=== PATIENT | female | born 1995 | race Caucasian/White ===

== ENCOUNTER 2017-05-25 16:10 | Emergency (ER) | payer BC ==
[2017-05-25 16:33] VITALS: BP 121/73
--- NOTE | 2017-05-25 16:46 | UC ---
Throat Pain/Nasal Dav HPI - HPI Summary HPI Summary: Pt c/o generalized malaise, sore throat, nausea and vomiting X 3 days. vomited ~ 1-2 per day. - History of Current Complaint Chief Complaint: UCGeneralIllness Stated Complaint: HEAD,BODY ACHES,VOMITING,ST Time Seen by Provider: 05/25/17 16:20 Hx Obtained From: Patient Hx Last Menstrual Period: 05/19/17 ?: No Onset/Duration: Sudden Onset, Lasting Days Severity: Mild - Epiglottits Risk Factors Epiglottis Risk Factors: Negative - Allergies/Home Medications Allergies/Adverse Reactions: Allergies Allergy/AdvReac Type Severity Reaction Status Date / Time Penicillins Allergy Hives Verified 05/25/17 16:33 Home Medications: Home Medications Bcp 1 tab PO DAILY 05/25/17 [History] Dextromethorphan-Phenylephrine [Daytime Cold & Flu Relief 10-5-325 mg] 2 cap PO DAILY PRN 05/25/17 [History Confirmed 05/25/17] PMH/Surg Hx/FS Hx/Imm Hx Previously Healthy: Yes - Surgical History Surgical History: None - Family History Known Family History: Positive: Cardiac Disease - Social History Occupation: Employed Full-time Lives: With Family Alcohol Use: None Substance Use Type: None Smoking Status (MU): Never Smoked Tobacco Have You Smoked in the Last Year: No Review of Systems Constitutional: Negative Skin: Negative Eyes: Negative ENT: Sore Throat Respiratory: Negative Cardiovascular: Negative Gastrointestinal: Abdominal Pain, Vomiting, Nausea Genitourinary: Negative Motor: Negative Neurovascular: Negative Musculoskeletal: Negative Neurological: Negative Psychological: Negative Is Patient Immunocompromised?: No All Other Systems Reviewed And Are Negative: Yes Physical Exam Triage Information Reviewed: Yes Appearance: Well-Appearing Vital Signs: Initial Vital Signs Temp 98.1 F 05/25/17 16:25 Pulse 91 05/25/17 16:25 Resp 14 05/25/17 16:25 BP 121/73 05/25/17 16:25 Pulse Ox 98 05/25/17 16:25 Vital Signs Reviewed: Yes Eye Exam: Normal ENT Exam: Normal Dental Exam: Normal Neck exam: Normal Respiratory Exam: Normal Cardiovascular Exam: Normal Abdominal Exam: Normal Bowel Sounds: Positive: Present Musculoskeletal Exam: Normal Neurological Exam: Normal Psychological Exam: Normal Skin Exam: Normal Throat Pain/Nasal Course/Dx - Differential Dx/Diagnosis Differential Diagnosis/HQI/PQRI: Pharyngitis, Tonsillitis Provider Diagnoses: sore throat. nausea and vomiting Discharge - Discharge Plan Condition: Stable Disposition: HOME Patient Education Materials: Pharyngitis (ED), Acute Nausea and Vomiting (ED) Forms: *Work Release Referrals: Gus Velasquez HOUSEKEEPING AIDE [Primary Care Provider] - If Needed
== END 2017-05-25 17:10 | disposition home or self-care (01) ==
LOC: UCCORT 16:10
DX: J02.9 Acute pharyngitis, unspecified (principal); J11.2 Influenza due to unidentified influenza virus with gastrointestinal manifestations
CPT/HCPCS: 87651; 99211; G0463

== ENCOUNTER 2017-08-23 19:55 | Emergency (ER) | payer BC ==
[2017-08-23 21:35] VITALS: BP 122/64
--- NOTE | 2017-08-23 22:49 | UC ---
Minor Trauma HPI - HPI Summary HPI Summary: DOG ACCIDENTALLY SWEPT FEET OUT FROM UNDER PT TONIGHT. PT LANDED ON ROCKS WITH LEFT ELBOW AND WRIST. - History of Current Complaint Chief Complaint: UCUpperExtremity Stated Complaint: LEFT ELBOW INJURY Time Seen by Provider: 08/23/17 21:43 Hx Obtained From: Patient, Family/Sales Facilitator - fiance Hx Last Menstrual Period: 08/11/17 Onset/Duration: Sudden Onset, Lasting Hours, Still Present Onset Of Pain: Immediate Severity Initially: Moderate Severity Currently: Moderate Pain Intensity: 7 Pain Scale Used: 0-10 Numeric Mechanism Of Injury: Blunt Trauma Aggravating Factor(s): Other: - PALPATION Alleviating Factor(s): Compression Associated Signs And Symptoms: Negative: Loss Of Consciousness, Ecchymosis, Swelling - Allergies/Home Medications Allergies/Adverse Reactions: Allergies Allergy/AdvReac Type Severity Reaction Status Date / Time Penicillins Allergy Rash Verified 08/23/17 21:38 PMH/Surg Hx/FS Hx/Imm Hx Previously Healthy: Yes - Surgical History Surgical History: None - Family History Known Family History: Positive: Cardiac Disease - Social History Alcohol Use: Rare Substance Use Type: None Smoking Status (MU): Never Smoked Tobacco Have You Smoked in the Last Year: No Review of Systems Constitutional: Negative Skin: Negative Respiratory: Negative Cardiovascular: Negative Gastrointestinal: Negative Musculoskeletal: Arthralgia, Decreased ROM All Other Systems Reviewed And Are Negative: Yes Physical Exam Triage Information Reviewed: Yes Appearance: Well-Appearing, No Pain Distress, Well-Nourished Vital Signs: Initial Vital Signs Temp 98.7 F 08/23/17 21:30 Pulse 63 08/23/17 21:30 Resp 16 08/23/17 21:30 BP 122/64 08/23/17 21:30 Pulse Ox 100 08/23/17 21:30 Vital Signs Reviewed: Yes Eyes: Positive: Conjunctiva Clear ENT: Positive: Hearing grossly normal Neck: Positive: Supple Respiratory: Positive: No respiratory distress, No accessory muscle use Cardiovascular: Positive: Pulses Normal Abdomen Description: Positive: Soft Musculoskeletal: Positive: No Edema, ROM Limited @ - LEFT WRIST AND ELBOW, Other : - DIFFUSELY TENDER (MILD) OVER LEFT ELBOW AND LEFT WRIST. EQUIVOCAL SNUFFBOX TENDERNESS. NO SWELLING OR BRUISING Neurological: Positive: Alert Psychological: Positive: Normal Response To Family, Age Appropriate Behavior Skin: Negative: rashes Diagnostics - Radiology LEFT WRIST AND ELBOW XRAYS Xray Interpretation: No Acute Changes Radiology Interpretation Completed By: ED Physician Minor Trauma Course/Dx - Differential Dx/Diagnosis Provider Diagnoses: 1. LEFT ELBOW CONTUSION. 2. LEFT WRIST SPRAIN Discharge - Discharge Plan Condition: Stable Disposition: HOME Patient Education Materials: Contusion in Adults (ED), Wrist Sprain (ED) Forms: *Work Release Referrals: Gus Velasquez NP [Primary Care Provider] - If Needed Elbert Pabon MD [Medical Doctor] - If Needed Additional Instructions: XRAY TODAY NEGATIVE FOR FRACTURE OR DISLOCATION ON MY INITIAL INTERPRETATION. WE WILL CALL YOU IF RADIOLOGY READ DIFFERS. SHERLEY WRAP, SPLINT AND SLING NEEDED. IBUPROFEN NEEDED FOR DISCOMFORT. IF YOU ARE NOT IMPROVING EXPECTED OVER THE NEXT WEEK FOLLOW-UP WITH ORTHO.
--- NOTE | 2017-08-24 07:42 | RAD ---
INDICATION: Left elbow injury. TECHNIQUE: 4 views of the left elbow were obtained. FINDINGS: The bones are in normal alignment. No joint effusion or fracture is seen. Joint spaces appear maintained. IMPRESSION: NO EVIDENCE FOR FRACTURE.
--- NOTE | 2017-08-24 07:43 | RAD ---
INDICATION: Left wrist injury. TECHNIQUE: 3 views of the left wrist were obtained. FINDINGS: The bones are in normal alignment. No fracture is seen. Joint spaces appear maintained. IMPRESSION: NO EVIDENCE FOR FRACTURE. IF THE PATIENT'S SYMPTOMS PERSIST RECOMMEND FOLLOW-UP IMAGING.
== END 2017-08-23 22:58 | disposition home or self-care (01) ==
LOC: UCCORT 19:55
DX: S50.02XA Contusion of left elbow, initial encounter (principal); S63.502A Unspecified sprain of left wrist, initial encounter; W01.0XXA Fall on same level from slipping, tripping and stumbling without subsequent striking against object, initial encounter; Y93.9 Activity, unspecified; Y92.9 Unspecified place or not applicable
CPT/HCPCS: 99213; G0463

== ENCOUNTER 2018-04-15 10:36 | Emergency (ER) | payer BC ==
--- NOTE | 2018-04-15 12:06 | UC ---
Throat Pain/Nasal Dav HPI - HPI Summary HPI Summary: 23 yo female presents with ear fullness, sinus pain/pressure/congestion, sore throat, and dry cough for the last 2 weeks. Her sore throat has resolved, but her sinus symptoms are still present. She is having a lot of post nasal drip, which she thinks is upsetting her stomach causing her to vomit two or three times in the last week. She has been taking dayquill and nyquill with mild relief of her symptoms. She denies fever, chills, SOB, chest pain, diarrhea, or dysuria. - History of Current Complaint Stated Complaint: HEADACHE,SORE THROAT,EARS,VOMITING Time Seen by Provider: 04/15/18 12:06 Hx Obtained From: Patient Hx Last Menstrual Period: 08/11/17 Onset/Duration: Gradual Onset Severity: Mild Pain Intensity: 4 Pain Scale Used: 0-10 Numeric - Allergies/Home Medications Allergies/Adverse Reactions: Allergies Allergy/AdvReac Type Severity Reaction Status Date / Time Penicillins Allergy Rash Verified 04/15/18 12:03 Home Medications: Home Medications D-Methorphan/PE/Acetaminophen [Vicks Dayquil Cold & Flu] 2 cap PO Q6H PRN [History Confirmed 04/15/18] Dm/PE/Acetaminophen/Doxylamine [Vicks Nyquil Severe Cold] 30 ml PO Q6H PRN 04/15 [History Confirmed 04/15/18] PMH/Surg Hx/FS Hx/Imm Hx - Additional Past Medical History Additional PMH: None - Surgical History Surgical History: None - Family History Known Family History: Positive: Cardiac Disease - Social History Occupation: Student Lives: Dormitory/Roommates Alcohol Use: Rare Substance Use Type: None Smoking Status (MU): Never Smoked Tobacco Have You Smoked in the Last Year: No Review of Systems Constitutional: Negative Skin: Negative Eyes: Negative ENT: Ear Ache, Nasal Discharge, Sinus Congestion, Sinus Pain/Tenderness Respiratory: Cough Cardiovascular: Negative Gastrointestinal: Vomiting, Nausea Genitourinary: Negative Neurological: Negative Psychological: Negative All Other Systems Reviewed And Are Negative: Yes Physical Exam - Summary Physical Exam Summary: GENERAL: NAD. WDWN. No pain distress. SKIN: No rashes, sores, lesions, or open wounds. HEENT: Head: AT/NC Eyes: EOM intact. Conjunctiva clear without inflammation or discharge. Ears: Hearing grossly normal. TMs intact, no bulging, erythema, or edema. Nose: Nasal mucosa mildly swollen and erythematous without discharge. TTP maxillary and frontal sinus. Throat: Posterior oropharynx without exudates, erythema, or tonsillar enlargement. Uvula midline. NECK: Supple. Nontender. No lymphadenopathy. CHEST: CTAB. No r/r/w. No accessory muscle use. Breathing comfortably and in no distress. CV: RRR. Without m/r/g. Pulses intact. NEURO: Alert. PSYCH: Age appropriate behavior. Triage Information Reviewed: Yes Vital Signs: Vital Signs: Temp Pulse Resp BP Pulse Ox 98.7 F 74 16 115/67 98 04/15/18 12:01 04/15/18 12:01 04/15/18 12:01 04/15/18 12:01 04/15/18 12:01 Laboratory Tests 04/15/18 12:09 Group A Strep Rapid Negative Vital Signs Reviewed: Yes Throat Pain/Nasal Course/Dx - Course Course Of Treatment: Sinusitis - Differential Dx/Diagnosis Provider Diagnoses: Sinusitis Discharge - Sign-Out/Discharge Documenting (check all that apply): Patient Departure All imaging exams completed and their final reports reviewed: No Studies - Discharge Plan Condition: Stable Disposition: HOME Prescriptions: Azithromycin TAB* [Zithromax TAB (Z-UZMA) 250 mg #6 tabs] 2 tab PO .TODAY, THEN 1 DAILY #1 uzma Patient Education Materials: Sinusitis (ED), Gastroenteritis (ED) Forms: *Work Release Referrals: Gus Velasquez NP [Primary Care Provider] - Additional Instructions: If you develop a fever, shortness of breath, chest pain, new or worsening symptoms - please call your PCP or go to the ED. - Billing Disposition and Condition Condition: STABLE Disposition: Home - Attestation Statements Provider Attestation: Chart reviewed. I was available for consult. I did not see this patient and was not involved in any disposition or treatment decisions.
[2018-04-15 12:08] VITALS: BP 115/67
== END 2018-04-15 12:42 | disposition home or self-care (01) ==
LOC: UCCORT 10:36
DX: J32.9 Chronic sinusitis, unspecified (principal); Z88.0 Allergy status to penicillin
CPT/HCPCS: 87651; 99212; G0463

== ENCOUNTER 2019-11-18 07:54 | Inpatient (IN) ==
[2019-11-18] MEDS ORDERED: Lactated Ringers 1000 ml BAG 1,000 ML IV ONE (09:40)
[2019-11-18 11:34] LABS: Urine Benzodiazepine Screen None Detected (None Detect); Urine Opiates Screen None Detected (None Detect)
[2019-11-18] MEDS ORDERED: Oxytocin in LR 20 UNITS/1,000 ML BAG IVPB SCH (15:00)
[2019-11-18] MEDS: Lactated Ringers 1000 ml BAG 1,000 ML IV SCH ×2 (15:15→19:26)
[2019-11-18 15:16] LABS: ABS Basophils 0.1 10^3/ul (0-0.2); ABS Lymphocytes 2.1 10^3/ul (1.0-4.8); ABS Monocytes 1.1 10^3/ul (0-0.8); Eosinophil % 0.4 %; Hematocrit 34 % (35-47); Hemoglobin 11.7 g/dL (12.0-16.0); Lymphocyte % 19.7 %; Mean Corpuscular HGB Conc 35 g/dL (31-36); Mean Corpuscular Hemoglobin 34 pg (27-31); Mean Corpuscular Volume 96 fL (80-97); Mean Platelet Volume 11.5 fL (7.4-10.4); Nucleated Red Blood Cells % 0.1; Platelet Count 127 10^3/uL (150-450); Red Blood Count 3.49 10^6 /uL (3.70-4.87); Red Cell Distribution Width 12 % (10-15); White Blood Count 10.6 10^3/uL (3.5-10.8)
[2019-11-19] MEDS ORDERED: Oxytocin in LR 20 UNITS/1,000 ML BAG IVPB SCH (07:00)
[2019-11-19] MEDS ORDERED: diPHENhydraMINE 25 mg TAB PO ONE (14:16)
[2019-11-19] MEDS ORDERED: Dinoprostone 10 MG VAG.SUPP VAGINAL ONE (19:15)
[2019-11-19] MEDS: Lactated Ringers 1000 ml BAG 1,000 ML IV SCH (21:35)
[2019-11-19] MEDS ORDERED: Morphine 10 MG/ML VIAL (1 ml) IV ONE (21:58)
[2019-11-19] MEDS ORDERED: Promethazine INJ(RESTRICTED) 25 MG/ML 1 ml VIAL IV ONE (22:01)
[2019-11-20] MEDS ORDERED: Morphine 10 MG/ML VIAL (1 ml) ONE ×2 (01:18→14:55)
[2019-11-20] MEDS ORDERED: Promethazine INJ(RESTRICTED) 25 MG/ML 1 ml VIAL ONE ×2 (01:18→14:55)
[2019-11-20] MEDS ORDERED: Morphine 10 MG/ML VIAL (1 ml) IV ONE (10:43)
[2019-11-20] MEDS ORDERED: Promethazine INJ(RESTRICTED) 25 MG/ML 1 ml VIAL IV ONE (10:44)
[2019-11-20 13:02] LABS: ABS Lymphocytes 1.4 10^3/ul (1.0-4.8); ABS Monocytes 1.3 10^3/ul (0-0.8); Eosinophil % 0.2 %; Hematocrit 33 % (35-47); Hemoglobin 11.5 g/dL (12.0-16.0); Lymphocyte % 8.8 %; Mean Corpuscular HGB Conc 35 g/dL (31-36); Mean Corpuscular Hemoglobin 33 pg (27-31); Mean Corpuscular Volume 96 fL (80-97); Mean Platelet Volume 11.7 fL (7.4-10.4); Platelet Count 107 10^3/uL (150-450); Red Blood Count 3.47 10^6 /uL (3.70-4.87); Red Cell Distribution Width 13 % (10-15); White Blood Count 16.1 10^3/uL (3.5-10.8)
[2019-11-20] MEDS: Lactated Ringers 1000 ml BAG 1,000 ML IV SCH (13:17)
[2019-11-20] MEDS: Oxytocin in LR 20 UNITS/1,000 ML BAG IVPB SCH (13:18)
[2019-11-20 13:19] LABS: Albumin 3.3 g/dL (3.2-5.2); Albumin/Globulin Ratio 1.1 (1-3); BUN/Creatinine Ratio 8.2 (8-20); Calcium 8.7 mg/dL (8.6-10.3); EGFR African American 191.1 (>60); EGFR Non-African American 157.9 (>60); Globulin 3.1 g/dL (2-4); Potassium 3.3 mmol/L (3.5-5.0); Total Bilirubin 0.6 mg/dL (0.2-1.0); Total Protein 6.4 g/dL (6.4-8.9); Uric Acid 3.7 mg/dL (2.3-6.6)
[2019-11-20] MEDS ORDERED: OBEPIDURAL 250 ML EPIDURAL ONE (16:35)
[2019-11-20] MEDS ORDERED: Phenylephrine 40 mcg/mL 10mL (400mcg) SYRINGE IV PUSH PRN ×2 (17:31)
[2019-11-20] MEDS ORDERED: Lactated Ringers 1000 ml BAG 500 ML IV PRN ×2 (17:31)
[2019-11-20] MEDS ORDERED: Lactated Ringers 1000 ml BAG 1,000 ML IV ONE (17:31)
[2019-11-20] MEDS ORDERED: Sodium Citrate/Citric Acid LIQ 15 ML UDC PO PRN (17:31)
[2019-11-20] MEDS ORDERED: OBEPIDURAL 250 ML EPIDURAL SCH (18:00)
[2019-11-20] MEDS ORDERED: Lactated Ringers 1000 ml BAG 1,000 ML IV SCH ×2 (18:00)
[2019-11-21] MEDS ORDERED: Witch Hazel PAD JAR TOPICAL PRN (04:38)
[2019-11-21] MEDS ORDERED: Glycerin ADULT 2.4 gm SUPP PR PRN (04:38)
[2019-11-21] MEDS ORDERED: Methylergonovine 0.2 mg AMPULE 1 ml AMP IM ONE (04:38)
[2019-11-21] MEDS ORDERED: Dibucaine 1% OINT 28.35 GM TUBE PR PRN (04:38)
[2019-11-21] MEDS ORDERED: Clindamycin 900 MG/D5W BAG 900 MG/50 ML BAG IVPB ONE (04:43)
[2019-11-21] MEDS ORDERED: Lactated Ringers 1000 ml BAG 1,000 ML IV SCH (05:00)
[2019-11-21] MEDS ORDERED: Oxytocin in LR 20 UNITS/1,000 ML BAG IVPB SCH (05:00)
[2019-11-21] MEDS ORDERED: Gentamicin ADULT 400 MG in NS 0.9% 100 ml BAG 100 ML IVPB ONE (05:15)
[2019-11-21] MEDS: Oxytocin in LR 20 UNITS/1,000 ML BAG IVPB SCH (05:19)
[2019-11-21] MEDS ORDERED: Varicella Virus Vaccine Live 0.5 ML VIAL SUBCUT ONE (09:00)
[2019-11-21 10:05] LABS: Hematocrit 21 % (35-47); Hemoglobin 7.4 g/dL (12.0-16.0); Mean Corpuscular HGB Conc 35 g/dL (31-36); Mean Corpuscular Hemoglobin 34 pg (27-31); Mean Corpuscular Volume 95 fL (80-97); Platelet Count 95 10^3/uL (150-450); Red Blood Count 2.22 10^6 /uL (3.70-4.87); Red Cell Distribution Width 12 % (10-15); White Blood Count 25.2 10^3/uL (3.5-10.8)
[2019-11-21 11:18] LABS: ABS Basophils 0.1 10^3/ul (0-0.2); ABS Lymphocytes 1.1 10^3/ul (1.0-4.8); ABS Monocytes 1.7 10^3/ul (0-0.8); Large Platelets Present; Lymphocyte % 4.2 %; Mean Platelet Volume 10.6 fL (7.4-10.4)
[2019-11-21] MEDS ORDERED: Lidocaine 1% VIAL 10 MG/ML VIAL ONE (22:13)
[2019-11-21] MEDS ORDERED: Methylergonovine 0.2 mg AMPULE 1 ml AMP ONE (22:13)
[2019-11-22 06:43] LABS: ABS Basophils 0.1 10^3/ul (0-0.2); ABS Eosinophils 0.1 10^3/ul (0-0.6); ABS Lymphocytes 2.7 10^3/ul (1.0-4.8); ABS Monocytes 1.6 10^3/ul (0-0.8); Eosinophil % 0.3 %; Hematocrit 18 % (35-47); Hemoglobin 6.4 g/dL (12.0-16.0); Mean Corpuscular HGB Conc 35 g/dL (31-36); Mean Corpuscular Hemoglobin 34 pg (27-31); Mean Corpuscular Volume 96 fL (80-97); Mean Platelet Volume 10.5 fL (7.4-10.4); Platelet Count 101 10^3/uL (150-450); Red Blood Count 1.89 10^6 /uL (3.70-4.87); Red Cell Distribution Width 12 % (10-15); White Blood Count 22.7 10^3/uL (3.5-10.8)
[2019-11-22 19:51] LABS: Hematocrit 26 % (35-47); Mean Corpuscular HGB Conc 34 g/dL (31-36); Mean Corpuscular Hemoglobin 32 pg (27-31); Mean Corpuscular Volume 92 fL (80-97); Mean Platelet Volume 10.3 fL (7.4-10.4); Platelet Count 125 10^3/uL (150-450); Red Blood Count 2.85 10^6 /uL (3.70-4.87); Red Cell Distribution Width 16 % (10-15); White Blood Count 25.1 10^3/uL (3.5-10.8)
[2019-11-22 20:09] LABS: ABS Eosinophils 0.1 10^3/ul (0-0.6); ABS Monocytes 1.5 10^3/ul (0-0.8); Eosinophil % 0.4 %; Nucleated Red Blood Cells % 0.1
[2019-11-23 06:51] LABS: Hematocrit 23 % (35-47); Hemoglobin 8.2 g/dL (12.0-16.0); Mean Corpuscular HGB Conc 36 g/dL (31-36); Mean Corpuscular Hemoglobin 32 pg (27-31); Mean Corpuscular Volume 91 fL (80-97); Mean Platelet Volume 10.7 fL (7.4-10.4); Platelet Count 109 10^3/uL (150-450); Red Blood Count 2.55 10^6 /uL (3.70-4.87); Red Cell Distribution Width 15 % (10-15); White Blood Count 18.5 10^3/uL (3.5-10.8)
[2019-11-23 08:15] VITALS: BP 137/76
[2019-11-23 09:15] LABS: ABS Basophils 0.1 10^3/ul (0-0.2); ABS Eosinophils 0.1 10^3/ul (0-0.6); ABS Lymphocytes 3.2 10^3/ul (1.0-4.8); ABS Monocytes 1.1 10^3/ul (0-0.8); Eosinophil % 0.7 %; Lymphocyte % 17.2 %; Nucleated Red Blood Cells % 0.1
== END 2019-11-23 13:04 | disposition home or self-care (01) | DRG 541 ==
LOC: MCHOBOUT 07:54 → MCHOB 09:20
PROVIDERS: ADMIT Midwife; ATTEND Midwife

== ENCOUNTER 2023-08-26 17:02 | Inpatient (IN) ==
[2023-08-26] MEDS ORDERED: Prochlorperazine 5 mg/ml 2 ml VIAL (10 mg) IV PRN (17:28)
[2023-08-26] MEDS ORDERED: Lidocaine 1% VIAL 10 MG/ML 30 ML VIAL INJ PRN (17:28)
[2023-08-26] MEDS: Lactated Ringers 1000 ml BAG 1,000 ML IV SCH (17:40)
[2023-08-26] MEDS: Vancomycin 1000 MG in NS 0.9% 250 ML IVPB ONE (18:12)
[2023-08-26] MEDS: Lactated Ringers 1000 ml BAG 1,000 ML IV ONE (18:12)
[2023-08-26] MEDS: Buffered Lidocaine 1% SYRIN 1 ml INTRADERM ONE (18:16)
[2023-08-26 18:25] LABS: Urine Benzodiazepine Screen None Detected (None Detect); Urine Opiates Screen None Detected (None Detect)
[2023-08-26 18:28] VITALS: BP 114/71
[2023-08-26 18:37] LABS: ABS Lymphocytes 1.9 10^3/uL (1.0-4.8); ABS Monocytes 1.2 10^3/uL (0.0-0.9); ABS Neutrophils 5.9 10^3/uL (1.5-7.6); ABS Nucleated RBC 0.01 10^3/ul; Eosinophil % 0.4 %; Hematocrit 34.7 % (35-45); Hemoglobin 12.2 g/dL (11.5-14.3); Mean Corpuscular Hgb Conc 35.1 g/dL (31-36); Mean Platelet Volume 11.4 fL (7.5-11.2); Nucleated Red Blood Cells % 0.1 %/100WBC (0.0-0.8); Platelet Count 142 10^3/uL (150-450); Red Blood Count 3.69 10^6/uL (3.63-4.92); Red Cell Distribution Width 12.9 % (12-17); White Blood Count 9.1 10^3/uL (3.8-11.8)
[2023-08-27] MEDS ORDERED: Vancomycin 1,000 MG in NS 0.9% 250 ml 250 ML IVPB SCH (06:00)
== END 2023-08-26 20:45 | disposition home or self-care (01) | DRG 560 ==
LOC: MCHOBOUT 17:02 → MCHOB 17:26
PROVIDERS: ADMIT Registered Nurse; ATTEND Registered Nurse

== ENCOUNTER 2023-09-01 08:00 | Inpatient (IN) ==
[2023-09-01] MEDS ORDERED: Lidocaine 1% VIAL 10 MG/ML 30 ML VIAL INJ PRN (08:01)
[2023-09-01] MEDS: Lactated Ringers 1000 ml BAG 1,000 ML IV SCH (09:22)
[2023-09-01] MEDS: Oxytocin in LR 20,000 MILLI.UNIT/1,000 ML BAG IV SCH (09:24)
[2023-09-01] MEDS: Vancomycin 1,000 MG in NS 0.9% 250 ml 250 ML IVPB SCH (09:29)
[2023-09-01 09:48] LABS: ABS Eosinophils 0.1 10^3/uL (0.0-0.5); ABS Lymphocytes 3.2 10^3/uL (1.0-4.8); ABS Neutrophils 6.8 10^3/uL (1.5-7.6); Eosinophil % 0.5 %; Hematocrit 34.9 % (35-45); Hemoglobin 12.2 g/dL (11.5-14.3); Lymphocyte % 28.8 %; Mean Corpuscular Hemoglobin 32.6 pg (27-33); Mean Platelet Volume 11.2 fL (7.5-11.2); Platelet Count 146 10^3/uL (150-450); Red Blood Count 3.75 10^6/uL (3.63-4.92); Red Cell Distribution Width 12.3 % (12-17); White Blood Count 11.1 10^3/uL (3.8-11.8)
[2023-09-01 10:15] LABS: Urine Benzodiazepine Screen None Detected (None Detect); Urine Cannabinoids Screen Presumptive Positive (None Detect); Urine Opiates Screen None Detected (None Detect)
[2023-09-02] MEDS: Oxytocin in LR 20,000 MILLI.UNIT/1,000 ML BAG IV SCH ×3 (01:04→16:30)
[2023-09-02] MEDS: Calcium Carb (TUMS) 500 mg CHEW TAB PO ONE (02:33)
[2023-09-02] MEDS: OBEPIDURAL (200 ML) 200 ML EPIDURAL ONE (08:21)
[2023-09-02] MEDS: Lidocaine 1.5% EPI 1:200,000 30 ML SDV ONE (08:22)
[2023-09-02] MEDS ORDERED: Sodium Citrate/Citric Acid LIQ 15 ML UDC PO PRN (08:34)
[2023-09-02] MEDS ORDERED: Phenylephrine 40 mcg/mL 10mL (400mcg) SYRINGE IV PUSH PRN (08:34)
[2023-09-02] MEDS ORDERED: OBEPIDURAL (200 ML) 200 ML EPIDURAL SCH (09:00)
[2023-09-02] MEDS: Phenylephrine 40 mcg/mL 10mL (400mcg) SYRINGE IV PUSH PRN (09:19)
[2023-09-02 10:45] LABS: Urine Appearance Turbid; Urine Bilirubin Negative (Negative); Urine Blood Trace (Negative); Urine Color Yellow; Urine Glucose Negative (Negative); Urine Ketones Negative (Negative); Urine Nitrite Negative (Negative); Urine Protein Negative (Negative); Urine Specific Gravity 1.013 (1.002-1.030); Urine Urobilinogen Negative (Negative)
[2023-09-02] MEDS: OBEPIDURAL (200 ML) 0 ML EPIDURAL ONE (12:09)
[2023-09-02] MEDS: Methylergonovine 0.2 mg AMPULE 1 ml AMP ONE (15:40)
[2023-09-02] MEDS: Lactated Ringers 1000 ml BAG 1,000 ML IV ONE ×2 (16:19→17:22)
[2023-09-02] MEDS ORDERED: Glycerin ADULT 2.4 gm SUPP PR PRN (16:21)
[2023-09-02] MEDS: Methylergonovine 0.2 mg AMPULE 1 ml AMP IM ONE (17:21)
[2023-09-02] MEDS: Lactated Ringers 1000 ml BAG 1,000 ML IV SCH (17:22)
[2023-09-02 21:00] LABS: Hematocrit 29.9 % (35-45); Hemoglobin 10.3 g/dL (11.5-14.3)
[2023-09-02] MEDS: Dibucaine 1% OINT 28.35 GM TUBE PR PRN (22:37)
[2023-09-02] MEDS: Witch Hazel PAD JAR TOPICAL PRN (22:37)
[2023-09-03 07:19] LABS: Hematocrit 21.9 % (35-45); Hemoglobin 7.8 g/dL (11.5-14.3); Mean Corpuscular Hemoglobin 32.5 pg (27-33); Mean Corpuscular Hgb Conc 35.6 g/dL (31-36); Mean Corpuscular Volume 91.5 fL (80-97); Platelet Count 96 10^3/uL (150-450); White Blood Count 10.8 10^3/uL (3.8-11.8)
[2023-09-03 09:59] LABS: ABS Lymphocytes 2.5 10^3/uL (1.0-4.8); ABS Neutrophils 7.2 10^3/uL (1.5-7.6); Eosinophil % 0.3 %; Lymphocyte % 23.1 %; Mean Platelet Volume 11.2 fL (7.5-11.2)
[2023-09-03] MEDS: Iron Sucrose 200 MG in NS 0.9% 100 ml BAG 100 ML IVPB ONE (14:04)
[2023-09-04 06:57] LABS: ABS Eosinophils 0.1 10^3/uL (0.0-0.5); ABS Monocytes 0.9 10^3/uL (0.0-0.9); ABS Neutrophils 6.5 10^3/uL (1.5-7.6); ABS Nucleated RBC 0.01 10^3/ul; Hemoglobin 8.2 g/dL (11.5-14.3); Lymphocyte % 28.3 %; Mean Corpuscular Hemoglobin 32.9 pg (27-33); Mean Corpuscular Hgb Conc 35.5 g/dL (31-36); Mean Corpuscular Volume 92.9 fL (80-97); Mean Platelet Volume 10.6 fL (7.5-11.2); Nucleated Red Blood Cells % 0.1 %/100WBC (0.0-0.8); Platelet Count 116 10^3/uL (150-450); Red Blood Count 2.48 10^6/uL (3.63-4.92); Red Cell Distribution Width 13.4 % (12-17); White Blood Count 10.4 10^3/uL (3.8-11.8)
[2023-09-04 07:51] VITALS: BP 125/73
== END 2023-09-04 13:00 | disposition home or self-care (01) | DRG 542 ==
LOC: MCHOBOUT 08:00 → MCHOB 08:08
PROVIDERS: ADMIT Midwife; ATTEND Midwife